=== PATIENT | female | born 1990 | race Caucasian/White ===

== ENCOUNTER 2020-04-23 08:37 | Emergency (ER) | payer OTHER ==
[~2020-04-23] VITALS: Ht 160 cm; Wt 57.2 kg
[~2020-04-23 08:37] MED LIST: CLOMID
--- NOTE | 2020-04-23 08:45 | NUR ---
DR. MERIDA EVALUATING PATIENT IN TRIAGE. HE IS AWARE SHE TOOK HER HYDROXYZINE IN ROUTE TO HOSPITAL IN AMBULANCE. PATIENT IS CALM, COOPERATIVE. HR 60'S
--- NOTE | 2020-04-23 08:56 | Emergency Department Note ---
History of Present Illnes History of Present Illness Chief Complaint: General Medicine Complaints History of Present Illness This is a 29 year old female Chief Complaint Comment YESTERDAY BEGAN HAVING ANXIETY ATTACK DESCRIBED CHEST TIGHTNESS, COULD NOT BREATH. STATES SHE TOOK HER HYDROXYZINE YESTERDAY TO GET IT UNDER CONTROL OTHERWISE IT WILL SNOWBALL. LAST EPISODE WAS 2 MTHS A GO AND IT LASTED 4 DAYS. PER EMS HER HR WAS 120'S WHEN THEY ARRIVED TOOK HER HYDROXYZINE IN AMBULANCE WHILE IN ROUTE. Historian: Patient Arrival Mode: Car Additional Treatment [employer] PURCHASE AND SALE CLERK: NONE Machine Setter Required: No Onset (how long ago): day(s) (4) Location: Head Quality: Anxiety Radiation: Reports non-radiation Severity: moderate Onset quality: gradual Duration (how long): day(s) (4) Timing of current episode: constant Progression: improving Context: Denies recent illness, Denies recent surgery Relieving factors: none Exacerbating factors: none Associated symptoms: Reports denies other symptoms Treatments prior to arrival: none Past Medical/Family History Physician Review I have reviewed the patient's past medical and family history. Any updates have been documented here. Past Medical History Recent Fever: No Clinical Suspicion of Infectio: No New/Unexplained Change in Ment: No Past Medical History: Anxiety Other Medical History: OVARIAN CYST Other Surgery: R KNEE ACL/MENISCUS Social History Physically hurt or threatened: No Other Last Tetanus: UTD Review of Systems Review of Systems Constitutional: Reports as per HPI EENTM: Reports no symptoms Cardiovascular: Reports no symptoms Respiratory: Reports no symptoms Gastrointestinal: Reports no symptoms Genitourinary: Reports no symptoms Musculoskeletal: Reports no symptoms Integumentary: Reports no symptoms Neurological: Reports no symptoms Psychological: Reports as per HPI, Reports anxiety Endocrine: Reports no symptoms Hematological/Lymphatic: Reports no symptoms Physical Exam Related Data Allergies: Coded Allergies: No Known Allergies (Unverified , 09/18/14) Triage Vital Signs Vital Signs Date Time Temp Pulse Resp B/P (MAP) Pulse Ox O2 Delivery O2 Flow Rate FiO2 04/23/20 08:43 98.7 63 18 131/85 99 Room Air Vital signs reviewed: Yes Physical Exam CONSTITUTIONAL Constitutional: Present well-developed, Present well-nourished HENT HENT: Present normocephalic, Present atraumatic, Present oropharynx clear/moist, Present nose normal HENT L/R: Present left ext ear normal, Present right ext ear normal EYES Eyes: Reports PERRL, Reports conjunctivae normal NECK Neck: Present ROM normal PULMONARY Pulmonary: Present effort normal, Present breath sounds normal CARDIOVASCULAR Cardiovascular: Present regular rhythm, Present heart sounds normal, Present capillary refill normal, Present normal rate GASTROINTESTINAL Abdominal: Present soft, Present nontender, Present bowel sounds normal GENITOURINARY Genitourinary: Present exam deferred SKIN Skin: Present warm, Present dry MUSCULOSKELETAL Musculoskeletal: Present ROM normal NEUROLOGICAL Neurological: Present alert, Present oriented x 3, Present no gross motor or sensory deficits PSYCHOLOGICAL Psychological: Present mood/affect normal, Present judgement normal Procedures 12 Lead ECG Interpretation ECG Interpretation : Date: Apr 23, 2020 Rhythm: sinus rhythm Ectopy: PVC's (1) Rate: normal QRS axis: normal ST segments normal: Yes Clinical Impression: normal ECG Assessment & Plan Medical Decision Making MDM 29-year-old female with a past medical history for anxiety who presents to the emergency department for anxiety attack. She took a hydroxyzine prior to arrival which is helping with her symptoms. She has had many of these episodes in the past and is currently being seen by the primary doctor and a therapist. Examination shows an overall well-appearing female in no acute distress, vital signs stable, with excellent wall limits. Urine test is negative and EKG is well-appearing. I discussed results with patient and she will follow-up with her primary doctor for further concerns. Instructed her on deep breathing exercises. Reassessment Reassessment time: 09:42 Reassessment Well appearing, NAD Assessment & Plan Final Impression: (1) Anxiety Depart Disposition: HOME, SELF-CARE Last Vital Signs Date Time Temp Pulse Resp B/P (MAP) Pulse Ox O2 Delivery O2 Flow Rate FiO2 04/23/20 08:43 98.7 63 18 131/85 99 Room Air Home Meds Reported Medications [Clomid] No Conflict Check 01/29/16 BRADEN PINA MD Apr 23, 2020 08:56
--- OUTSIDE RECORDS SUMMARY | 2020-04-23 09:01 | XMS REPORT | Continuity of Care Document ---
Author Author [facility] t Organization [facility] t Address [address] [place] [address] Phone Unavailable Care Team Providers Care Concreting Supervisor Name Role Phone Herb МАРИНАLay Attphys Keaton BOCANEGRA, M Lay Attphys Unavailable Lisa PT, Ayla Knapp Attphys Unavailable Edwin MOCK, A William Attphys Doctor Unassigned, Name No Attphys Unavailable Problems Condition Name Condition Details Condition Category Status Onset Date Resolution Date Last Treatment Date Treating Clinician Comments Source Sprained Right Knee Spra ined Right Knee Active 08/06/2013 [facility] Problem Active 2013-08-06 15:53:53 Caitlin Kirkpatrick Anxiety (Symptom) Anxi ety (Symptom) Active 09/04/2013 [facility] Problem Active 2013-09-04 22:53:41 M emorilauren Kirkpatrick Joint Pain In The Right Knee J oint Pain In The Right Knee Active 09/04/2013 [facility] Problem Active 2013-09-04 2 2:53:41 Caitlin Kirkpatrick Acute Pharyngitis Acut e Pharyngitis Active 08/06/2013 [facility] Problem Active 2013-08-06 15:53:53 M emorilauren Crawleyann Diarrhea (Symptom) Diar eleno (Symptom) Active 08/06/2013 [facility] Problem Active 2013-08-06 15:53:53 Caitlin Kirkpatrick Acute Upper Respiratory Infection Acute Upper Respiratory Infection Active 08/06/2013 [facility] Problem Active 2013-08-06 15:53:53 Caitlin Kirkpatrick Insomnia Inso mnia Active 09/04/2013 [facility] Problem Active 2013-09-04 22:53:41 Caitlin Kirkpatrick Allergies, Adverse Reactions, Alerts Allergy Name Allergy Type Status Severity Reaction(s) Onset Date Inacti ve Date Treating Clinician Comments Source No Known Drug Allergies No Known Drug Allergies Active Caitlin Kirkpatrick Family History Family Member Diagnosis Comments Start Date Stop Date Source Unknown Family Member Family History 2013-07-11 14:36:48 2 14:36:48 Caitlin Kirkpatrick Social History Social Habit Start Date Stop Date Quantity Comments Source Social History 2013-09-04 22:53:41 2013-09-04 22:53:41 Caitlin Kirkpatrick Medications Ordered Medication Name Filled Medication Name Start Date Stop Da te Current Medication? Ordering Clinician Indication Dosage Frequency Signature (SIG) Comments Components Source Cefdinir 300 MG Oral Capsule 2013-08-10 06:00:00 Yes ; Start Date: 08/10/2013; End Date: (Active) Caitlin Kirkpatrick Bromfed DM 30-2-10 MG/5ML Oral Syrup 2013-08-10 06:00:00 Ye s ; Start Date: 08/10/2013; End Date: 08/30/2013 (Active) [facility] TraZODone HCl 50 MG Oral Tablet 2013-08-06 06:00:00 Yes ; Start Date: 08/06/2013; End Date: (Active) Caitlin Casim[facility] Citalopram Hydrobromide 10 MG Oral Tablet 2013-08-06 06:00:00 Yes ; Start Date: 08/06/2013; End Date: (Active) Caitlin Kirkpatrick Tramadol-Acetaminophen 37.5-325 MG Oral Tablet 2013-07-11 14:36: 48 Yes (Active) Caitlin Karson n FLUoxetine HCl 10 MG Oral Capsule 2013-07-10 06:00:00 Yes ; Start Date: 07/10/2013; End Date: (Active) [facility] Cefdinir 300 MG Oral Capsule 2013-07-10 06:00:00 Yes ; Start Date: 07/10/2013; End Date: 07/20/2013 (Active) Caitlin Kirkpatrick Levsin 0.125 MG Oral Tablet 2013-07-10 06:00:00 Yes ; Start Date: 07/10/2013; End Date: (Active) [facility] Tamiflu 75 MG Oral Capsule 2013-07-10 06:00:00 Yes ; Start Date: 07/10/2013 (Active) [facility] Procedures This patient has no known procedures. Encounters Start Date/Time End Date/Time [facility] ID Source 2020-03-28 00:00:00 2020-03-28 00:00:00 Telephone Rubio Estevezjennifer [facility] [id number] 2020-02-16 00:00:00 2020-02-16 00:00:00 Telephone Lay Pugh [facility] [id number] 2020-02-12 13:55:04 2020-02-12 14:10:04 Nurse Visit Lay Estevez [facility] [id number] 2019-04-23 13:51:39 2019-04-23 14:51:39 Ancillary Visit Ra Aguilar [facility] ([facility]) [id number] 2019-03-22 00:00:00 2019-03-22 00:00:00 Telephone William Pineda [facility] [id number] 2019-03-20 13:56:09 2019-03-20 17:47:00 Office Visit William Pineda [facility] [id number] 2019-03-20 00:00:00 2019-03-20 00:00:00 Orders Only D gregory Unassigned, [place] [facility] [id number] 2013-09-04 16:53:41 2013-09-04 16:53:41 Outpatient [facility] [id number] 2013-08-10 12:53:02 2013-08-10 12:53:01 Outpatient [facility] IE [id number] 2013-08-06 09:53:53 2013-08-06 09:53:53 Outpatient [facility] [id number] 2013-07-11 08:36:49 2013-07-11 08:36:48 Outpatient [facility] [id number] Results This patient has no known results.
--- OUTSIDE RECORDS SUMMARY | 2020-04-23 09:01 | XMS REPORT | Continuity of Care Document ---
Author Author Caitlin Valor [employer] Address Unknown Phone Unavailable Care Team Providers Care Fleet Manager/Dispatch Name Role Phone [employer] Unavailable Un available Problems Problem Status Onset Date Classification Date Reported Comments Source Sprained Right Knee Active 08/06/2013 [facility] Anxiety (Symptom) Active 09/04/2013 [facility] Joint Pain In The Right Knee A ctive 09/04/2013 [facility] Acute Pharyngitis Active 08/06/2013 [facility] Diarrhea (Symptom) Active 08/06/2013 [facility] Acute Upper Respiratory Infection Active 08/06/2013 [facility] Insomnia Active 09/04/2013 [facility] Medications Medication Details Route Status Patient Instructions Ordering Provider Order Date Source Cefdinir 300 MG Oral Capsule ; Start Date: 08/10/2013; End Date: (Active) Active 08/10/2013 [facility] Bromfed DM 30-2-10 MG/5ML Oral Syrup ; Start Date: 08/10/2013; End Date: 08/30/2013 (Active) Active 08/10/2013 [facility] TraZODone HCl 50 MG Oral Tablet ; Start Date: 08/06/2013; End Date: (Active) Active 08/06/2013 [facility] Citalopram Hydrobromide 10 MG Oral Tablet ; Start Date: 08/06/2013; End Date: (Active) Active 08/06/2013 [facility] FLUoxetine HCl 10 MG Oral Capsule ; Start Date: 07/10/2013; End Date: (Active) Active 07/10/2013 [facility] Cefdinir 300 MG Oral Capsule ; Start Date: 07/10/2013; End Date: 07/20/2013 (Active) Active 07/10/2013 [facility] Levsin 0.125 MG Oral Tablet ; Start Date: 07/10/2013; End Date: (Active) Active 07/10/2013 [facility] Tamiflu 75 MG Oral Capsule ; S tart Date: 07/10/2013 (Active) Active 07/10/2013 [facility] Tramadol-Acetaminophen 37.5-325 MG Oral Tablet (Active) Active [facility] Allergies, Adverse Reactions, Alerts Substance Category Reaction Severity Reaction type Status Date Reported Comments Source No Known Drug Allergies drug a llergy drug aller gy Active [facility] Immunizations No Data Provided for This Section Results No Data Provided for This Section Pathology Reports No Data Provided for This Section Diagnostic Reports No Data Provided for This Section Consultation Notes No Data Provided for This Section Discharge Summaries No Data Provided for This Section History and Physicals No Data Provided for This Section Vital Signs No Data Provided for This Section Encounters Location Location Details Encounter Type Encounter Number Reason For Visit Attending Provider ADM Date DC Date Status Source AUDIT [id number] 07/11/2013 07/11/2013 [facility] AUDIT [id number] 08/06/2013 08/06/2013 [facility] A[facility] [id number] 08/10/2013 08/10/2013 [facility] A[facility] [id number] 09/04/2013 09/04/2013 [facility] Procedures No Data Provided for This Section Assessment and Plan No Data Provided for This Section Plan of Care No Data Provided for This Section Social History Social History Date Source Current Smoker (305.1); (Active) Marital History - Single (Active) Being A Social Drinker (Active) No History of Drug Use (Denied) 09/04/2013 [facility] Family History Value Date S ource Maternal grandmother's history of Cervic al Cancer (Active) 09/04/2013 [facility] Maternal grandmother's history of Cervic al Cancer (Active) 08/10/2013 [facility] Maternal grandmother's history of Cervic al Cancer (Active) 08/06/2013 [facility] Maternal grandmother's history of Cervic al Cancer (Active) 07/11/2013 [facility] Advance Directives Order Name Results Value Date Source Advance Directives Advance Dir ectives No Advance Directives available. 09/04/2013 [facility] Advance Directives Advance Dir ectives No Advance Directives available. 08/10/2013 [facility] Advance Directives Advance Dir ectives No Advance Directives available. 08/06/2013 [facility] Advance Directives Advance Dir ectives No Advance Directives available. 07/11/2013 [facility] Functional Status No Data Provided for This Section
[2020-04-23 09:54] VITALS: BP 125/75
== END 2020-04-23 10:00 | disposition home or self-care (01) ==
LOC: ER 08:45
DX: F41.9 Anxiety disorder, unspecified (principal)
CPT/HCPCS: 81025; 93005; 99283